=== PATIENT | female | born 1955 | race Caucasian/White ===

== ENCOUNTER 2017-07-28 17:19 | Emergency (ER) | payer OTHER ==
[~2017-07-28] VITALS: Ht 165.1 cm; Wt 75.5 kg
[~2017-07-28 17:19] MED LIST: DICL75 PO; META800 PO
[2017-07-28 17:21] VITALS: BP 186/108; PULSE 90; RESP 18; TEMP 98.6; O2SAT 95
[2017-07-28] MEDS ORDERED: FLUT1SPR5 EACH NARE (17:31)
[2017-07-28] MEDS ORDERED: AMOX875T PO (17:31)
[2017-07-28 17:35] VITALS: BP 155/83; PULSE 88; RESP 18; O2SAT 97
[2017-07-28] MEDS ORDERED: PROM6.256 PO (18:27)
--- NOTE | 2017-07-28 18:35 | PD ---
HPI . Persistent cough Chief Complaint: Cold / Flu Symptoms Time Seen by Provider: 18:01 Travel History International Travel<30 days: No Contact w/Intl Traveler<30days: No Traveled to known affect area: No History of Present Illness HPI This patient presents with a chief complaint of a cough for about a week now. She has had an associated fever of about 102. She feels hoarse. She has subsequently developed some chest discomfort with coughing. She states that she has been taking DayQuil and NyQuil. She was also seen at an urgent care facility 2 days ago and was started on amoxicillin. She is unsure as to the diagnosis that prompted the order for an antibiotic. Nonetheless, he is not getting any better. She states that she was told at urgent care that she needed to have a chest x-ray she did not improve in a couple of days. She has not improved so she presents to us tonight mainly for chest x-ray. Her fevers have subsided. She believes that she probably last ran a fever about 2 days ago. Her chest discomfort as a soreness rated 3/10 and exacerbated by coughing. PFSH Past Medical History High Cholesterol: Yes Diminished Hearing: No Influenza Vaccination: No ?: Not Tubal Ligation: Yes Social History Alcohol Use: No Tobacco Use: No Substance Use: No Allergies-Medications (Allergen,Severity, Reaction): Coded Allergies: beef derived (bovine) (Unverified Allergy, Severe, Respiratory Failure, 07/28/17) penicillin G (Unverified Allergy, Unknown, Rash on neck and back, 07/28/17) Uncoded Allergies: FOOD ALLERGIES (Allergy, Severe, Shortness of Breath, 08/27/12) Reported Meds & Prescriptions Reported Meds & Active Scripts Active Promethazine-Codeine Liq 6.25-10 Mg/5 Ml Syrp 10 Ml PO Q6H PRN Reported Amoxicillin 875 Mg Tab 875 Mg PO BID Flonase Nasal [place] (Fluticasone Nasal [place]) 50 Mcg/Act [place] 50 Mcg EACH NARE BID Review of Systems Except as stated in HPI: all other systems reviewed are Neg General / Constitutional: Positive: Fever, Chills HENT: Positive: Other (hoarse) Cardiovascular: Positive: Chest Pain or Discomfort Respiratory: Positive: Cough Physical Exam Narrative GENERAL: Awake and alert and in no acute distress. SKIN: Warm and dry. Good color and turgor. HEAD: Normocephalic/atraumatic. EYES: Pupils are equal. Extraocular movements are intact. NECK: Normal range of motion. CARDIOVASCULAR: Regular rate and rhythm. Heart sounds are normal. RESPIRATORY: Nonlabored respirations. Lungs sound clear with full air movement throughout. MUSCULOSKELETAL: Atraumatic. NEUROLOGICAL: Nonfocal. PSYCHIATRIC: Appropriate mood and affect. Data Data Last Documented VS Vital Signs Date Time Temp Pulse Resp B/P (MAP) Pulse Ox O2 Delivery O2 Flow Rate FiO2 07/28/17 17:35 88 18 155/83 (107) 97 Room Air 07/28/17 17:21 98.6 Orders Orders Chest, Pa & Lat (07/28/17 18:15) MDM Medical Decision Making Medical Screen Exam Complete: Yes Emergency Medical Condition: Yes Differential Diagnosis Differential diagnosis includes but is not limited to viral respiratory illness , bronchitis, pneumonia, allergies, CHF, asthma/COPD. Narrative Course This patient presents with a chief complaint of a cough. Onset was a week ago. Her symptoms persist and she has now developed chest soreness with coughing. Chest x-ray is pending. Chest x-ray to my interpretation is negative for infiltrate. The radiologist interpretation is also negative. Diagnosis Primary Impression: Cough Patient Instructions: Acute Cough (ED), General Instructions Med/Other Pt SpecificInfo: Prescription(s) given Scripts Promethazine-Codeine Liq (Promethazine-Codeine Liq) 6.25-10 Mg/5 Ml Syrp 10 ML PO Q6H Y for COUGH AND/OR COLD SYMPTOMS, #120 ML 0 Refills Prov: Radha Saul MD 07/28/17 Disposition: 01 DISCHARGE HOME Condition: Stable Radha Saul MD Jul 28, 2017 18:35
--- NOTE | 2017-07-28 18:53 | RADRPT ---
EXAM DATE/TIME: 07/28/2017 18:23 [facility] COMPARISON: No previous studies available for comparison. INDICATIONS : Fever and cough for one week. MEDICAL HISTORY : Hypercholesterolemia. SURGICAL HISTORY : None. ENCOUNTER: Initial ACUITY: 1 week PAIN SCORE: 0/10 LOCATION: Bilateral chest FINDINGS: PA and lateral views of the chest demonstrate the lungs to be symmetrically aerated without evidence of mass, infiltrate or effusion. The cardiomediastinal contours are unremarkable. Osseous structure s are intact. CONCLUSION: Normal examination. Randolph Dewitt MD on July 28, 2017 at 18:51 Board Certified Radiologist. This report was verified electronically.
[2017-07-28 19:06] VITALS: BP 159/75; TEMP 98.7
== END 2017-07-28 19:08 | disposition home or self-care (01) ==
LOC: PHED 17:19
DX: R05 Cough (principal); E78.00 Pure hypercholesterolemia, unspecified
CPT/HCPCS: 71046; 99283